=== PATIENT | female | born 1995 | race Caucasian/White ===

== ENCOUNTER 2023-10-23 10:52 | Outpatient (AMB) | payer OTHER, SELFPAY ==
--- NOTE | 2023-10-23 11:00 | A.OFFPC_ITS ---
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 Intake Note: New patient visit Allergies No Known Allergies Allergy (Verified 10/23/23 11:09) Medication List - Last Reconciled 10/23/23 by ADDIE FonsecaP- cetirizine (Zyrtec) 10 mg PO DAILY PRN Tobacco use date assessed: 10/23/23 Dental Screening Dental Screen Date: 10/23/23 Did you have a dental visit in the last 12 months?: Yes Did you have a dental problem in the last 6 months where you did not have access to dental care?: No Was dental information given to patient?: Patient has dentist HPI HPI Comments History of Present Illness Details 28-year-old female with obesity, seasona l allergies, MONSE, astigmatism Surgery - R foot surgery, no hardware 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 Colon ? Mammo ? DEXA ? PAP ? Tdap Specialists: Counseling Derm Here today to est care & for CPE. [place] Want DM screen & thyroid screen. Intentional wt loss w/ lifestyle mods. R wrist pain injured 1 year ago and has had recurrent injury since this time. 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 Has never had it looked at. Right handed. Wearing OTC compression brace w/ minimal relief. Plays disc golf ? exac. would like skin screen given family hx. Eyes - astigmatism needs new eye screen Sleep - no issues Plan: Refer to Metabolic Clinic Refer to FACSIMILE OPERATOR Refer to OT Tdap today Refer to Derm Refer to Counseling Refer to optho Screening labs. PFSH Family History (Updated 10/23/23 @ 11:21 by Janet June CMA) Maternal Grandmother Alcoholism Maternal Grandfather Alcoholism Cardiovascular disease Paternal Grandmother Alcoholism Paternal Grandfather Alcoholism Colon cancer Father Asthma Mother Hypercholesteremia Diabetes Other Substance use Social History (Updated 10/23/23 @ 11:16 by Janet June CMA) Housing: Apartment Patient Tobacco Use Status: Former Tobacco user Cigarettes Per Day: 2 Years Smoked: 3 e-Cigarette/Vaping Use: Never Used Second Hand Smoke Exposure: Yes Substance Use Type: Marijuana service: No Current occupational status: employed 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 1. Little interest or pleasure in doing things: not at all 2. Feeling down, depressed, or hopeless: not at all 3. Trouble falling or staying asleep, or sleeping too much: not at all 4. Feeling tired or having little energy: several days 5. Poor appetite or overeating: several days 6. Feeling bad about yourself - or that you are a failure or have let yourself or your family down: not at all 7. Trouble concentrating on things, such as reading the newspaper or watching television: not at all 8. Moving or speaking so slowly that other people could have noticed. Or the opposite - being so fidgety or restless that you have been moving around a lot more than usual: not at all 9. Thoughts that you would be better off or of hurting yourself in some way: not at all Total score: 2 Depression Screening Interpretation: Negative Depression Screening Done: Yes 34591 - PHQ-9 Billing: Yes Source: Developed by Drs. Shaji Doherty, Gabriella Perera, Panfilo Campos and colleagues, with an educational genevieve from [employer]. Thrive Questionnaire Date Thrive assessed: 10/23/23 I am a: Patient What is your living situation today?: I have a steady place to live Within the past 12 months, did the food you bought not last and you didn't have the money to get more?: Never true Within the past 12 months, did you worry whether your food would run out before you got money to buy more?: Never true Do you have trouble paying for medicines?: No Do you have trouble getting transportation to medical appointments?: No Do you have trouble paying your heating and electricity bill?: No Do you have trouble taking care of your child, family member or friend?: No Do you have trouble with day-to-day activities such as bathing, preparing meals, shopping, managing finances, etc.?: No Are you currently unemployed and looking for a job?: No Are you interested in more education?: No Please select the resources that you would like help with: None Currently or been in a relationship where the following occur: no concerns reported THRIVE Score: 0 AUDIT C Alcohol Use Questionnaire (AUDIT-C) 1. How often do you have a drink containing alcohol?: Monthly or less 2. How many drinks containing alcohol do you have on a typical day when you are drinking?: 3 or 4 3. How often do you have six or more drinks on one occasion?: Never Total Score: 2 Score Reviewed/Action Taken: Yes MONSE-7 AMB Questionnaire MONSE-7 Date MONSE - 7 assessed: 10/23/23 Feeling nervous, anxious, or on edge: 0 = Not at all Not being able to stop or control worryin = Not at all Worrying too much about different things: 1 = Several days Trouble relaxin = Not at all Being so restless that it is hard to sit still: 0 = Not at all Becoming easily annoyed or irritable: 1 = Several days Feeling afraid as if something awful might happen: 0 = Not at all Total MONSE-7 score (0-4 normal; 5-9 mild; 10-14 moderate; 15-21 severe): 2 Source: Developed by Drs. Shaji Doherty, Gabriella Perera, Panfilo Campos and colleagues, with an educational genevieve from [employer]. MONSE-7 Assessment Billing MONSE-7 Assessment Tool: MONSE-7 Assessment 84635 Review of Systems Const Details: Constitutional: Denies fever. Skin: Denies rash. Eye: Denies eye pain. ENMT: Denies sore throat and nasal congestion. Respiratory: Denies shortness of breath and cough. Gastrointestinal: Denies nausea, vomiting or abdominal pain. Occasional stools that float Cardiovascular: Denies chest pain and syncope. Genitourinary: Denies dysuria. Musculoskeletal: Denies back pain Neurologic: Denies headaches, confusion, and weakness. Psychiatric: Denies suicidal thoughts and substance abuse. Allergy/ Immunologic: Denies impaired immunity. Physical exam (Primary Care) Vital Signs: Last Vital Signs Temp 98.4 F 10/23/23 11:06 Pulse 70 10/23/23 11:06 Resp 14 10/23/23 11:06 BP 98/74 10/23/23 11:06 Pulse Ox 99 10/23/23 11:06 Oxygen Delivery Method Room Air 10/23/23 11:06 BMI result Body Mass Index 36.5 BMI Assessment/Plan discussion: High BMI High, discussed plan: lifestyle Tobacco/Smoking Status: Tobacco use Status Tobacco use date assessed 10/23/23 10/23/23 11:04 Patient Tobacco Use Status Former Tobacco user 10/23/23 11:16 e-Cigarette/Vaping Use Never Used 10/23/23 11:16 PHQ-9: PHQ-9 Score PHQ-9: Total score 2 10/23/23 12:16 Depression Screening Interpretation: Negative Thrive Assessment: Date of Thrive Assessment Date Thrive assessed 10/23/23 10/23/23 11:17 Currently or been in a relationship where the following occur: no concerns reported Const Other: General: Well developed, well nourished, in no acute distress. Appears stated age. Head: Normocephalic, atraumatic. Eyes: Pupils are equal, round and reactive to light and accommodation. Conjunctivae are clear. Vision grossly normal. Ears: TMs clear AU, EACS WNL Nose: Patent, without discharge. Mouth: There are no ulcers or lesions noted. No inflammation, no post nasal drip, no plaques nor exudates. Neck: Supple, no adenopathy or thyromegaly. Lungs: Clear to auscultation bilaterally. No rales, rhonchi or wheeze noted. Go od air flow in all lopez. Heart: Regular rate and rhythm. No murmurs, click, rubs or gallops are noted. Abdomen: Bowel sounds present in all quadrants. The abdomen is soft, nontender, with no masses or organomegaly noted. No hernias are noted. Musculoskeletal: Joints are without swelling, redness, or effusions. Range of motion is observed to be normal. Painful flexion of right wrist, pain with lateral movement bilat, twisting motion. Director Client Services normal. Pulses: Peripheral pulses are equal and palpable bilaterally. Extremities: No clubbing, cyanosis nor edema is noted. Neurologic: Gait and station normal. Cranial Nerves 2-12 intact. Motor strength grossly symmetrical and intact. No sensory loss. Balance normal. Skin: No rashes, ulcers, or lesions noted. Turgor is good. Skin color is good. Hair and nails are without abnormalities. Psych: Normal eye contact, affect and mood appropriate, and normal interactions. Patient is alert and appropriate to context. Assessment and Plan Assessment & Plan (1) Encounter for general adult medical examination without abnormal findings: Code(s): Z00.00 - Encounter for general adult medical examination without abnormal findings (2) Laboratory exam ordered as part of routine general medical examination: Code(s): Z00.00 - Encounter for general adult medical examination without abnormal findings (3) Class 2 drug-induced obesity with body mass index (BMI) of 36.0 to 36.9 in adult: Code(s): E66.1 - Drug-induced obesity; Z68.36 - Body mass index [BMI] 36.0-36.9, adult Qualifiers: Serious obesity comorbidity presence: without serious comorbidity Qualified Code(s): E66.1 - Drug-induced obesity; Z68.36 - Body mass index [BMI] 36.0-36.9, adult (4) MONSE (generalized anxiety disorder): Code(s): F41.1 - Generalized anxiety disorder (5) Cervical cancer screening: Code(s): Z12.4 - Encounter for screening for malignant neoplasm of cervix (6) Right wrist pain: Code(s): M25.531 - Pain in right wrist (7) 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 Panel Today Z00.00 - Encounter for general adult medical examination without abnormal findings Hemoglobin A1c Today Z00.00 - Encounter for general adult medical examination w ithout abnormal findings TSH reflex Free T4 Today Z00.00 - Encounter for general adult medical examination without abnormal findings Vitamin B12 and Folate Today Z00.00 - Encounter for general adult medical examination without abnormal findings LDL Cholesterol Direct Today Z00.00 - Encounter for general adult medical examination without abnormal findings Microalbumin, Random (w Creat) Today Z00.00 - Encounter for general adult medical examination without abnormal findings Vitamin D 1,25 dihydroxy Today Z00.00 - Encounter for general adult medical examination without abnormal findings IRON PROFILE Today Z00.00 - Encounter for general adult medical examination without abnormal findings Complete Blood Count no Diff Today Z00.00 - Encounter for general adult medical examination without abnormal findings Referrals Counseling Referral F41.1 - Generalized anxiety disorder Dermatology Referral Z12.83 - Encounter for screening for malignant neoplasm of skin Metabolic Clinic Referral E66.1 - Drug-induced obesity, Z68.36 - Body mass index [BMI] 36.0-36.9, adult FOOT GATHERER Referral Z12.4 - Encounter for screening for malignant neoplasm of cervix Ophthalmology Referral H52.209 - Unspecified astigmatism, unspecified eye Patient Instructions: Please return to office in 1 year for complete physical exam. Sooner as needed. Please let me know if you are unhappy with the metabolic clinic referral via the portal I would be happy to place a referral to nutrition. I will post your labs to the portal. If there is anything abnormal I will notify you via the portal. If any treatment is needed I will arrange for a follow up visit sooner than 1 year. Plan: Refer to Metabolic Clinic Refer to FACSIMILE OPERATOR Refer to OT Tdap today Refer to Derm Refer to Counseling Refer to optho Screening labs today Walk-In Care (Urgent Care): We Make it Easy Walk-in for urgent medical issues such as: ? Seasonal Allergies ? Insect Bites ? Cough ? Diarrhea ? Acute Asthma Attacks ? Back, Knee or Joint Pain ? Ear Infection ? Fever without a Rash ? Headaches ? Nausea ? [place] Eye, Rash or Skin Irritation ? Sore Throat ? Sports Physicals ? Vomiting Most insurances are accepted. Patients do not need to be part of the [facility] to seek care at the walk-in clinic. Locations [facility] [address]a [address], [place] [address] ? [phone] [facility] in [place] provides services to ages 18 and over. Open Sunday-Sunday: 8 a.m. to 5 p.m. and Saturday: 9 a.m. to 3 p.m.* *Hours may vary due to staffing availability. To confirm Walk-In Care hours in [place], please call [phone]. [address] [place] [address] ? [phone] [facility] Walk-In Care in [place] provides services to ages 12 and over. Open Sunday-Sunday: 8 a.m. to 5 p.m. Hours may vary due to staffing availability. To confirm Walk-In Care hours in [place], please call [phone]. LABORATORY SERVICES: [facility] Lab ? Primary Location [address] [place] [address] Sunday through Sunday 6:00 AM ? 5:00 PM Sunday 7:00 AM ? 11:00 AM* [phone] The [facility] Lab is centrally located near the front entrance of the [facility] for easy outpatient access. Convenient parking is provided for outpatients. *Hours may vary due to staffing availability. To confirm Laboratory hours for any location, please call [phone]. Offsite Location For your convenience, we offer offsite laboratory draw stations at the following locations: [address] [place] [address] ? [address], [address] Sunday through Sunday 7:30 AM ? 1:00 PM* [phone] *Hours may vary due to staffing availability. To confirm Laboratory hours for any location, please call [phone]. [place] ? [address] Sunday through Sunday 6:00 AM ? 3:30 PM* Sunday 6:30 AM ? 3 PM* [phone] *Hours may vary due to staffing availability. To confirm Laboratory hours for any location, please call [phone] [place] [address] Sunday through Sunday 7:30 AM ? 4:00 PM* [phone] *Hours may vary due to staffing availability. To confirm Laboratory hours for any location, please call [phone] [place] [address] Sunday through 9:00 AM ? 4:00 PM* *Hours may vary due to staffing availability. To confirm Laboratory hours for any location, please call [phone]. Appointments are not necessary. Walk-ins are welcome. Like all the departments throughout the [facility], our Lab undergoes frequent reviews to ensure the quality and accuracy of test results, and our staff takes special pride in its status as a nationally accredited facility. Patient Portal: ONE PATIENT. ONE RECORD. BETTER CARE. [facility] has a fully integrated, cutting- edge mobile electronic health information system that has revolutionized the way we care for our patients and manage our organization. This system improves communication and coordination enabling us to provide safe, higher-quality care, and an overall positive experience for staff and patients. Our first priority, as always, is to deliver the highest quality care possible. The system is running in the background supporting that priority. This portal is for all [facility] and [facility] services and practices. If you are experiencing any technical difficulties with enrolling or logging into the Patient Portal please complete the [facility] Patient Portal Technical Support Form. [facility] now offers a new secure on-line interactive tool for patients to review their health information ? ?Patient Portal. This interactive web portal will enable patients and their families to take an active role in their care by providing easy, secure access to their health information via the internet. The Patient Portal provides patients with instant access to their health information, including laboratory results, medications, allergies, demographic information, visit history, and more. In addition to managing their own care, parents and health care proxies with authorized consent will appreciate the ability to access the records of those individuals for whom they provide care. Please note: if you wish to gain access (Proxy) to another patient?s portal, you will be required to come to the Medical Records Department in person at [facility]. Both the patient giving proxy access and the proxy will need to provide photo identification and complete the appropriate authorization. The Patient Portal also allows track their appointments online. The [facility] Patient Portal also saves patients time by allowing them to submit updates to their demographic and contact information prior to their visits. Portal email notifications will also alert patients to any new activity on their portal, such as test results and new appointments. In order to initially enroll in the [facility] Patient Portal, you will need to enter some required information including the following: * your [facility] Medical Record number * your personal home email address * name * date of Please note: In order to enroll in the [facility] Patient Portal, we need to have your email address on file in your electronic medical record. ?The email address needs to be specific for one person (yourself) in order for your Portal enrollment to be successful. ?You can update your email address in person with our Registration staff when you are registering for a hospital visit. ?Otherwise, you will need to come to the Health Information Management (Medical Records) Department at [facility]. ?We are open from Sunday ? Sunday from 7:30 a.m. ? 4:30 p.m. ?You will be required to present a photo id. Once you have successfully enrolled in the Patient Portal, you will receive a one-time user id and password for the Portal, sent to your email address. ?This will allow you to log into the Patient Portal within 99 hrs and reset your own logon id and password, and define personal security questions. ?Once your per manent login and password have been set, you can log into the [facility] Patient Portal at any time via the blue button above or from the Portal Logon button on any page of the [facility] website. [facility] and [facility] encourage all of our patients to enroll in Patient Portal as it presents a valuable opportunity for patients and their families to actively participate in their care and stay healthy Welcome to [facility]. ?We look forward to working with you. Health screenings for women You should visit your health care provider from time to time, even if you are healthy. The purpose of these visits is to: Screen for medical issues Assess your risk for future medical problems Encourage a healthy lifestyle Update vaccinations and other preventive care services Help you get to know your provider in case of an illness Information Even if you feel fine, you should still see your provider for regular checkups. These visits can help you avoid problems in the future. For example, the only way to find out if you have high blood pressure is to have it checked regularly. High blood sugar and high cholesterol levels also may not have any symptoms in the early stages. A simple blood test can check for these conditions. There are specific times when you should see your provider or receive specific health screenings. The [place] Preventive Services Task Force publishes a list of recommended screenings. Below are screening guidelines for women ages 18 to 39. BLOOD PRESSURE SCREENING Your blood pressure should be checked at least once every 3 to 5 years if: Your blood pressure is in the normal range (top number less than 120 mm Hg and bottom number less than 80 mm Hg) You don't have risk factors for high blood pressure Ask your provider if you need your blood pressure checked more often if: The top number is 120 to 129 mm Hg or the bottom number is 70 to 79 mm Hg You have diabetes, heart disease, kidney problems, are overweight, or have certain other health conditions You have a first-degree relative with high blood pressure You are Black You had high blood pressure during a If the top number is 130 mm Hg or greater or the bottom number is 80 mm Hg or greater, this is considered stage 1 hypertension. Schedule an appointment with your provider to learn how you can reduce your blood pressure. Watch for blood pressure screenings in your area. Ask your provider if you can stop in to have your blood pressure checked. BREAST CANCER SCREENING Experts do not agree about the benefits of breast self-exams in finding breast cancer or saving lives. Talk to your provider about what is best for you. A screening mammogram is not recommended for most women under age 40. Your provider may discuss and recommend mammograms, MRI scans, or ultrasounds if you have an increased risk for breast cancer, such as: A mother or sister who had breast cancer at a young age (most often starting screening earlier than the age the close relative was diagnosed) You carry a high-risk genetic marker CERVICAL CANCER SCREENING Cervical cancer screening should start at age 21 years unless your provider advises otherwise. After the first test: Women ages 21 through 29 should have a Pap test every 3 years. Exoprts do not agree on whether HPV testing is recommended for this age group. Women ages 30 through 65 should be screened with either a Pap test every 3 years or the HPV test every 5 years or both tests every 5 years (called cotesting ). Women who have been treated for precancer (cervical dysplasia) should continue to have Pap tests for 20 years after treatment or until age 65, whichever is longer. If you have had your uterus and cervix removed (total hysterectomy), and you have not been diagnosed with cervical cancer or precancer (high grade cervical neoplasia), you do not need cervical cancer screening. CHOLESTEROL SCREENING Cholesterol screening should begin at: Age 45 for women with no known risk factors for coronary heart disease Age 20 for women with known risk factors for coronary heart disease Repeat cholesterol screening should take place: Every 5 years for women with normal cholesterol levels More often if changes occur in lifestyle (including weight gain and diet) More often if you have diabetes, heart disease, kidney problems, or certain other conditions DIABETES SCREENING You should be screened for diabetes starting at age 35 and then repeated every 3 years if you have no risk factors for diabetes. Screening may need to start earlier and be repeated more often if you have other risk factors for diabetes, such as: You have a first degree relative with diabetes. You are overweight or have obesity. You have high blood pressure, prediabetes, or a history of heart disease. Screening for diabetes should be done if you are planning to become and you are overweight and have other risk factors such as high blood pressure. DENTAL EXAM Go to the dentist once or twice every year for an exam and cleaning. Your dentist will evaluate if you need more frequent visits. EYE EXAM Have an eye exam every 5 to 10 years before age 40. If you have vision problems, have an eye exam every 2 years or more often if recommended by your provider. You should have an eye exam that includes an examination of your retina (back of your eye) at least every year if you have diabetes. IMMUNIZATIONS Commonly needed vaccines include: Flu shot: get one every year. COVID-19 vaccine: ask your provider what is best for you. Tetanus-diphtheria and acellular pertussis (Tdap) vaccine: have one at or after age 19 as one of your tetanus-diphtheria vaccines if you did not receive it as an adolescent. Tetanus-diphtheria: have a booster (or Tdap) every 10 years. Varicella vaccine: receive 2 doses if you never had chickenpox or the varicella vaccine. Hepatitis B vaccine: receive 2, 3, or 4 doses, depending on your exact circumstances. Measles, mumps, and rubella (MMR) vaccine: receive 1 to 2 doses if you are not already immune to MMR. Your provider can tell you if you are immune. Ask your provider about the human papillomavirus (HPV) vaccine if: You have not received the HPV vaccine in the past You have not completed the full vaccine series (you should catch up on this shot) Ask your provider if you should receive other immunizations if you have certain health problems that increase your risk for some diseases such as pneumonia. INFECTIOUS DISEASE SCREENING Women who are sexually active should be screened for chlamydia and gonorrhea up until age 25. Women 25 years and older should be screened for chlamydia and gonorrhea if at high risk. Screening for hepatitis C: All adults ages 18 to 79 should get a one-time test for hepatitis C. people should be screened at every . Screening for human immunodeficiency virus (HIV): All people ages 15 to 65 should get a one-time test for HIV. Depending on your lifestyle and medical history, you may also need to be screened for infections such as syphilis and HIV, as well as other infections. PHYSICAL EXAM All adults should visit their provider from time to time, even if they are healthy. The purpose of these visits is to: Screen for disease Assess your risk of future medical problems Encourage a healthy lifestyle Update your vaccinations and other preventive care services Maintain a relationship with a provider in case of an illness Your height, weight, and BMI should be checked at every exam. During your exam, your provider may ask you about: Depression and anxiety Diet and exercise Alcohol and tobacco use Safety issues, such as using seat belts, smoke detectors, and intimate partner violence Your medicines and risk for interactions SKIN SELF-EXAM Your provider may check your skin for signs of skin cancer, especially if you're at high risk, such as if you: Have had skin cancer before Have close relatives with skin cancer Have a weakened immune system OTHER SCREENING Talk with your provider about colon cancer screening if you have a strong family history of colon cancer or polyps, or if you have had inflammatory bowel disease or polyps yourself. Routine bone density screening of women under 40 is not recommended. 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
[2023-10-23 11:06] VITALS: BP 98/74; PULSE 70; RESP 14; TEMP 36.9; O2SAT 99; BMI 36.5
== END 2023-10-23 11:46 | disposition home or self-care (01) ==
PROVIDERS: PCP Family Medicine; Visit Provider Nurse Practitioner Family
DX: Z00.00 Encounter for general adult medical examination without abnormal findings (principal); E66.1 Drug-induced obesity; Z68.36 Body mass index [BMI] 36.0-36.9, adult; Z23 Encounter for immunization; F41.1 Generalized anxiety disorder; M25.531 Pain in right wrist; R29.898 Other symptoms and signs involving the musculoskeletal system; H52.203 Unspecified astigmatism, bilateral
CPT/HCPCS: 90471; 90715; 99385

== ENCOUNTER 2023-10-23 11:51 | Outpatient (REF) | payer OTHER, SELFPAY ==
[2023-10-23 14:37] LABS: Hematocrit 38.3 % (37.0-47.0); Hemoglobin 12.5 g/dl (12.0-16.0); Mean Corpuscular HGB Conc 32.6 g/dl (31.0-35.0); Mean Corpuscular Hemoglobin 29.3 pg (27.0-33.0); Mean Corpuscular Volume 89.9 fL (80.0-98.0); Mean Platelet Volume 10.6 fL (9.4-12.3); Platelet Count 344 X10*3/uL (160-400); Red Blood Count 4.26 X10*6/uL (4.20-5.50); Red Cell Distribution Width 12.6 % (11.0-16.0); White Blood Count 7.2 X10*3/uL (4.8-10.8)
[2023-10-23 14:48] LABS: Estimated Average Glucose 94 mg/dL; Hemoglobin A1c % 4.9 % (<6.0)
[2023-10-23 14:53] LABS: Alanine Aminotransferase 66 U/L (0-31); Albumin Level 4.1 g/dL (3.5-5.0); Alkaline Phosphatase 47 U/L (39-117); Anion Gap 11 (12-20); Aspartate Amino Transferase 46 U/L (5-31); Bilirubin Total 0.4 mg/dL (0.0-1.0); Blood Urea Nitrogen 11 mg/dL (9-16); Calcium 9.7 mg/dL (8.4-10.2); Carbon Dioxide 26 mmol/L (22-29); Chloride 107 mmol/L (96-108); Estimated Glomerular Filt Rate > 60; Glucose Random 91 mg/dL (60-115); Iron 63 mcg/dL (30-160); Percent Iron Saturation 22 % (15-50); Sodium 140 mmol/L (135-145); Total Iron Binding Capacity 281 mcg/dL (228-428); Total Protein 7.1 g/dL (6.5-8.0); Unsaturated Iron Binding 218 ug/dL
[2023-10-23 15:09] LABS: TSH reflex Free T4 2.04 uIU/mL (0.32-4.0)
[2023-10-23 15:10] LABS: Creatinine Urine 39.28 mg/dL; Microalbumin Urine < 5.0 mg/L
[2023-10-23 15:23] LABS: Folate 12.5 ng/mL (> or = 4.0); Vitamin B12 314 pg/mL (200-900)
[2023-10-24 17:13] LABS: LDL Cholesterol Direct 112 mg/dL (<100)
[2023-10-27 13:38] LABS: VITAMIN D (1,25 OH) D3 27 pg/mL; Vit D (1,25-Dihydroxy) Total 27 pg/mL (18-72); Vitamin D (1,25 OH) D2 <8 pg/mL
== END 2023-10-23 11:52 | disposition home or self-care (01) ==
LOC: HO.WFDLDS 11:51
PROVIDERS: Visit Provider Nurse Practitioner Family
DX: Z00.00 Encounter for general adult medical examination without abnormal findings (principal); Z13.89 Encounter for screening for other disorder; Z13.1 Encounter for screening for diabetes mellitus
CPT/HCPCS: 36415; 80053; 82043; 82570; 82607; 82652; 82746; 83036; 83540; 83721; 84443; 85027

== ENCOUNTER 2023-10-31 09:10 | Outpatient (AMB) | payer OTHER, SELFPAY ==
--- NOTE | 2023-10-31 09:21 | A.OFFVIS_ITS ---
VS Expanded 10/31/23 09:21 10/31/23 09:28 Height 5 ft 5.5 in 5 ft 5.5 in Weight 220 lb 14.451 oz BMI 36.2 Intake Visit Reasons: Drug-induced obesity Allergies No Known Allergies Allergy (Verified 10/23/23 11:09) Nutrition Presentation Details: Pt presents for MNT for drug-induced obesity. Pt was referred by PCP, Sera Turner BS Monitoring Most Recent Diabetes Results: Microalb/Creat Ratio TNP 10/23/23 Creatinine 0.75 mg/dL (0.5-1.4) 10/23/23 Blood Urea Nitrogen 11 mg/dL (9-16) 10/23/23 Sodium 140 mmol/L (135-145) 10/23/23 Potassium 4.0 mmol/L (3.3-5.1) 10/23/23 Chloride 107 mmol/L (96-108) 10/23/23 Carbon Dioxide 26 mmol/L (22-29) 10/23/23 Calcium 9.7 mg/dL (8.4-10.2) 10/23/23 AST 46 U/L (5-31) H 10/23/23 ALT 66 U/L (0-31) H 10/23/23 Total Protein 7.1 g/dL (6.5-8.0) 10/23/23 Albumin 4.1 g/dL (3.5-5.0) 10/23/23 FIQ-Qeomzfs-Zh.Jeor Equation Height: 5 ft 5.5 in Weight: 221 lb Resting Metabolic Rate: 1732.65 Calculated Activity Level: Sedentary Calories Needed to Maintain Weight: 2079.18 Diagnosis Nutrition problem #1: food nutri know defi As related to (etiology) #1: diagnosis As evidenced by (sign/symptom) #1: knowledge deficit of diet Monitoring/Goals Nutrition problem monitoring: level of knowledge/skill Nutrition goal/outcome: wt loss 5lbs in 2 months Outcome progress: verbalized understanding Learning/Education Readiness to learn: good PFSH Family History (Updated 10/23/23 @ 11:21 by Janet June [facility]) Maternal Grandmother Alcoholism Maternal Grandfather Alcoholism Cardiovascular disease Paternal Grandmother Alcoholism Paternal Grandfather Alcoholism Colon cancer Father Asthma Mother Hypercholesteremia Diabetes Other Substance use Social History (Updated 10/23/23 @ 11:16 by CONCEPCION Joe Housing: Apartment Patient Tobacco Use Status: Former Tobacco user Cigarettes Per Day: 2 Years Smoked: 3 e-Cigarette/Vaping Use: Never Used Second Hand Smoke Exposure: Yes Substance Use Type: Marijuana service: No Current occupational status: employed 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 Current occupational exposures/hazards: No Cognitive needs: No Hearing needs: No Vision needs: No Assessment & Plan Assessment & Plan (1) Class 2 drug-induced obesity with body mass index (BMI) of 36.0 to 36.9 in adult: Code(s): E66.1 - Drug-induced obesity; Z68.36 - Body mass index [BMI] 36.0-36.9, adult Category: Medical Qualifiers: Serious obesity comorbidity presence: without serious comorbidity Qualified Code(s): E66.1 - Drug-induced obesity; Z68.36 - Body mass index [BMI] 36.0-36.9, adult Plan: Wt: 100 Kg ( 11/2023 ) Est kcal needs as per MSJ: 2100 (40% carb, 30% protein/fat) Est fluid needs as per 25-30 ml/d: 3000 Est prot per day as per 1 g/kg bw: 100 Recommend fiber intake : 8-10 g per day and gradually increase to 25-28 g per day for women and 35-38 g for men or as tolerated Recommend sodium intake per day : less than 2000 mg Educated patient on: ( R = reviewed V = verbalizes understanding N/R = needs review N/A = not applicable * Food sources of carbohydrate, adequate serving sizes and its role in various health conditions: R * Differences between complex carbohydrates a simple carbohydrates, role of fiber in diet: R * Lean protein sources of foods: R * Differences between types of fats and role in diet (mono on saturated fat fatty acids, saturated fatty acids, trans fats): R V N/R * Food sources of sodium in salt and healthy modifications for heart health in kidney health: R V R/V * Vitamins and minerals: R V N/R * Healthy plate method concept: R * Physical activity: Benefits a precaution: R V N/R * Mindful eating strategies: R Patient Instructions: work on meal planning following healthy plate method Reduce your total carbs to about 60-g or less per meal choosing complex carbs, practice mindful eating strategies Coding Level of Care Code Nutr Indiv Intake (71133) Diagnoses 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
[2023-11-06 08:40] VITALS: BMI 36.2
== END 2023-10-31 10:01 | disposition home or self-care (01) ==
PROVIDERS: PCP Family Medicine; Visit Provider Dietitian, Registered
DX: E66.1 Drug-induced obesity (principal); Z68.36 Body mass index [BMI] 36.0-36.9, adult

== ENCOUNTER → 2023-10-31 09:10 | Outpatient (BNVA) | payer OTHER, SELFPAY | PROVIDERS: PCP Family Medicine; Visit Provider Dietitian, Registered | DX: E66.1 Drug-induced obesity (principal); T50.905A Adverse effect of unspecified drugs, medicaments and biological substances, initial encounter; Z68.36 Body mass index [BMI] 36.0-36.9, adult; Z71.3 Dietary counseling and surveillance | CPT/HCPCS: 97802 ==

== ENCOUNTER 2024-01-18 13:00 | Outpatient (RCR) | payer OTHER, SELFPAY ==
--- NOTE | 2023-11-28 14:02 | MHC.OT.EP ---
[address] [phone] Occupational Therapy Plan of Care Patient Name: Carolann Rodriguez Date of Evaluation: 11/28/23 Diagnosis: R FA radial wrist pain Pain Location: volar radial side of FA Pain Score: 4 Pain Scale Used: Numeric (0 - 10) Aggravating Factors: wrist flexion and wrist abduction ; heavy lifting and gripping Alleviating Factors: rest Assessment: Pt is a 28 yr. old R hand dominant female who has been experiencing R radial wrist/ forearm pain for a few mos. She believes she may have over extended a few mos. ago while performing yoga. She reports the pain is w/ heavy lifting (over 5lbs), after disc golf and/or w/wrist flexion and abduction. 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 Thank you once again for your referral.
== END 2024-01-18 14:20 | disposition home or self-care (01) ==
LOC: HO.OT 13:00
PROVIDERS: PCP Nurse Practitioner Family; Visit Provider Nurse Practitioner Family
DX: M25.531 Pain in right wrist (principal); R29.898 Other symptoms and signs involving the musculoskeletal system
CPT/HCPCS: 97110; 97140; 97165; 97535

== ENCOUNTER 2024-01-18 14:27 | Outpatient (AMB) | payer OTHER, SELFPAY ==
[2024-01-18 14:35] VITALS: BP 100/60; BMI 36.9
--- NOTE | 2024-01-18 14:35 | A.OFFVIS_ITS ---
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 she is well to into her own body. In the past she has used an IUD she did think that she had an allergic reaction to the metal though in questioning there is also possibility that iodine splash Betadine could be a factor as well. She lived in [place] for several years and then in [place] and now has relocated to the [facility] she has a therapist at [facility]. She does lots of various kinds of exercises that are very active and she is adding weight training to her regimen. She recently saw her primary care provider and has gotten a bunch referrals. She was interested in testing for BV but also had a full discussion about it today she is not having particular symptoms today the thought she was aware of slight odor. She is going to lean towards treating were naturally with probiotics if necessary or boric acid but was happy to have a prescription sent for Metrogel just in case she needs it. She is currently in the follicular phase of her cycle. She also had question about small bumps that she has in her vulva that she has noticed over the years she thinks it started as a small folliculitis so painful that she squeezed and it got bigger PFSH Family History Maternal Grandmother Alcoholism Maternal Grandfather Alcoholism Cardiovascular disease Paternal Grandmother Alcoholism Paternal Grandfather Alcoholism Colon cancer Father Asthma Mother Hypercholesteremia Diabetes Other Substance use Social History Housing: Apartment Patient Tobacco Use Status: Former Tobacco user Cigarettes Per Day: 2 Years Smoked: 3 e-Cigarette/Vaping Use: Never Used Second Hand Smoke Exposure: Yes Substance Use Type: Marijuana service: No Current occupational status: employed 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 Current occupational exposures/hazards: No Cognitive needs: No Hearing needs: No Vision needs: No Female Reproductive History Menstrual Age of Menarche: 11 Duration of menses: 6-7 days Date of last menstrual period: 01/05/24 control method: none Total pregnancies: 0 Date of last pap smear: 06/05/18 (negative) History of abnormal pap smear: No Physical Exam Vital Signs: Last Vital Signs BP 100/60 01/18/24 14:35 BMI result Body Mass Index 36.9 Const General: healthy appearing, comfortable, no acute distress, well developed and alert Nutritional Appearance: average body habitus Orientation/consciousness: patient oriented x3 Limitations: no limitations HEENT Head: Yes normocephalic Neck Neck: Yes normal visual inspection Chest Chest palpation & inspection: normal inspection of the chest Breast/axilla inspection: normal inspection of the breasts and normal inspection of the axillae Breast/axilla palpation: normal palpation of the breasts and normal palpation of the axillae Resp Effort & Inspection: normal respiratory effort GI Inspection: Yes normal to inspection, No Abdominal wall edema and No distended Palpation (GI): Soft to palpation and nontender Other: External vagina within normal limits vulva is slightly pinker than surrounding tissue. Vagina pink and moist clear discharge consistent with a approaching ovulation cervix appears irregular as if it is multiparous but patient has not however had a she did have the IUD and she posits that perhaps it got scarred with removal of the IUD. Cervix is otherwise long close thick mobile nontender uterus is small retroverted mobile nontender adnexa nontender not enlarged good tone with Kegel There is 1 some mucosal whitish firm lesion (0.5 cm in length 0.25 cm wide) right labia as well as to tinier that appeared to be the same in character. General: Yes bladder normal to palpation External Female Exam: normal external appearance and normal appearance of the urethra Speculum Exam - Vagina: normal appearance of the vagina, normal palpation and normal vaginal discharge Speculum Exam - Cervix: normal appearance of the cervix, normal palpation and nontender Bimanual exam- vagina & uterus: normal bimanual exam, normal palpation, uterine size normal, bladder normal to palpation, consistency normal, normal palpation, uterine mobility normal, uterine shape normal, No Cervical tenderness present, non-tender and no cervical motion tenderness Bimanual Exam- Adnexa, other: normal adnexae, no masses, normal and No adnexal tenderness Neuro General: patient oriented x3 Assessment & Plan Assessment & Plan (1) Cervical cancer screening: Comment: 01/18/2024 Pap smear done. Code(s): Z12.4 - Encounter for screening for malignant neoplasm of cervix Category: Medical (2) Bacterial vaginosis: Comment: History of some recurrences, extensive discussion about this entity and over diagnosis and contributing factors, no clinical evidence of it today. 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 she is well to into her own royce dy. In the past she has used an IUD she did think that she had an allergic reaction to the metal though in questioning there is also possibility that iodine splash Betadine could be a factor as well. She lived in [place] for several years and then in [place] and now has relocated to the [place] states she has a therapist at [facility]. She does lots of various kinds of exercises that are very active and she is adding weight training to her regimen. She recently saw her primary care provider and has gotten a bunch referrals. She was interested in testing for BV but also had a full discussion about it today she is not having particular symptoms today the thought she was aware of slight odor. She is going to lean towards treating were naturally with probiotics if necessary or boric acid but was happy to have a prescription sent for Metrogel just in case she needs it. She is currently in the follicular phase of her cycle. -----Discussed in this visit the following: healthy balanced diet, regular and consistent exercise, getting recommended health screens, doing the best she can for her particular health concerns, kegel exercises, pap smear screening and followup recommendations, mammography screening and SBE, normal changes in cycles in her life stage--- . She is not interested in get at this time. She is thinking that maybe she and her partner may consider that next 5-7 years discussed fertility changes over time and her excellent self awareness. Reviewed that we do not have a birthing center here so full comprehensive obstetrical care is not avai lable in our facility any longer. Medications: New metronidazole 0.75%(37.5mg/5gram) Use p.r.n. When necessary for bacterial vaginosis 1 appful vaginal BID 5 days 70 grams 2RF Coding Level of Care Code New Pt Prev Care 18-39yr([id number] Diagnoses Cervical cancer screening Z12.4 Bacterial vaginosis N76.0; B96.89 Uses fertility awareness method as primary control method Z78.9
== END 2024-01-18 15:34 | disposition home or self-care (01) ==
PROVIDERS: PCP Nurse Practitioner Family; Visit Provider Advanced Practice Midwife
DX: Z01.419 Encounter for gynecological examination (general) (routine) without abnormal findings (principal); N76.0 Acute vaginitis; B96.89 Other specified bacterial agents as the cause of diseases classified elsewhere; Z78.9 Other specified health status
CPT/HCPCS: 99385

== ENCOUNTER 2024-01-18 14:27 | Outpatient (REF) | payer OTHER, SELFPAY ==
[2024-01-22 05:01] LABS: CT PCR NOT DETECTED (Not Detect.); NG PCR NOT DETECTED (Not Detect.)
[2024-01-22 11:13] LABS: Bacterial Vaginosis PCR POSITIVE (Negative); Candida Group PCR DETECTED (Not Detect); Candida glab krusei PCR NOT DETECTED (Not Detect); Trichomonas vaginalis PCR NOT DETECTED (Not Detect)
[2024-01-24 13:04] LABS: HPV mRNA E6/E7 Not Detected (Not Detected)
== END 2024-01-18 14:28 | disposition home or self-care (01) ==
LOC: HO.LAB 14:27
PROVIDERS: PCP Nurse Practitioner Family; Visit Provider Advanced Practice Midwife
DX: Z01.419 Encounter for gynecological examination (general) (routine) without abnormal findings (principal); N89.8 Other specified noninflammatory disorders of vagina; Z20.2 Contact with and (suspected) exposure to infections with a predominantly sexual mode of transmission
CPT/HCPCS: 0352U; 36415; 87491; 87591; 87624; 88175

== ENCOUNTER → 2024-03-07 11:46 | Outpatient (AMB) | payer OTHER, SELFPAY ==
--- NOTE | 2024-03-07 15:52 | MHC.PC.OV ---
Intake Visit Reasons: fu on asthma Allergies No Known Allergies Allergy (Verified 03/07/24 15:52) Medication List - Last Reconciled 03/07/24 by Saba Turner, [facility] albuterol sulfate 90 mcg/actuation 2 puffs inhalation Q4-6H PRN 30 days cetirizine (Zyrtec) 10 mg PO DAILY PRN fluconazole 150 mg PO DAILY 1 dose metronidazole 0.75%(37.5mg/5gram) 1 appful vaginal BID 5 days multivitamin 1 tab PO DAILY Tobacco use date assessed: 10/23/23 Dental Screening Dental Screen Date: 10/23/23 HPI HPI Comments History of Present Illness Details 29-year-old female with obesity, seasonal allergies, MONSE, astigmatism Surgery - R foot surgery, no hardware 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 However over the summer she has noticed an increase in the intensity of her allergy symptoms to the point where she is having wheezing chest tightness and shortness of breath. She reports that these symptoms are worse with exposures to allergens such as dogs and dust. She was on daily Zyrtec 10 mg. Admits to taking up to 50 mg daily to control symptoms without relief. Her father has an albuterol inhaler and she did use this during 1 of her episodes with positive relief. She did send me a portal message and I also sent in an albuterol inhaler of which she has used 2 times since then. She wonders if there is any allergy testing or treatment that she can have done. She denies any cough, tobacco use her smoke exposure. She denies a personal history of asthma. She has not been able to check her O2 saturations at baseline or when these occurrences are happening. She has tried Benadryl to help relieve her symptoms as well as Claritin. Plan Discontinue Zyrtec. Start Xyzal 5 mg 1 tab p.o. daily. Try this for 1 week to see if this helps the allergy symptoms. If not start Singulair 10 mg 1 tablet p.o. at bedtime in addition to Xyzal. Referral to Allergy and immunology in [facility] for further evaluation and treatment. Continue to use albuterol as needed. The goal would be to have well-controlled symptoms and not need this other than prophylactically. Educated that if she develops respiratory distress she should seek care in the emergency room. Advised for her to follow up with me should her symptoms not be improved. This note is constructed using voice recognition software. While every effort has been made to ensure accuracy in professional services specialist, still errors may have been included Sometimes, these errors may affect the content or meaning of the given sentence . Total time spent caring for the patient today was 15 minutes. This includes time spent before the visit reviewing the chart, time spent during the visit, and time spent after the visit on documentation PFSH Family History Maternal Grandmother Alcoholism Maternal Grandfather Alcoholism Cardiovascular disease Paternal Grandmother Alcoholism Paternal Grandfather Alcoholism Colon cancer Father Asthma Mother Hypercholesteremia Diabetes Other Substance use Social History Housing: Apartment Patient Tobacco Use Status: Former Tobacco user Cigarettes Per Day: 2 Years Smoked: 3 e-Cigarette/Vaping Use: Never Used Second Hand Smoke Exposure: Yes Substance Use Type: Marijuana service: No Current occupational status: employed 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 Shaji Doherty, Gabriella Perera, Panfilo Campos and colleagues, with an educational genevieve from [employer]. Physical exam (Primary Care) Tobacco/Smoking Status: Tobacco use Status Tobacco use date assessed 10/23/23 10/23/23 11:04 Patient Tobacco Use Status Former Tobacco user 10/23/23 11:16 e-Cigarette/Vaping Use Never Used 10/23/23 11:16 Thrive Assessment: Date of Thrive Assessment Date Thrive assessed 10/23/23 10/23/23 11:17 Telehealth Telehealth Telehealth Platform: [facility] Location of provider rendering services: practice address Location of patient: address on file Patient Identification confirmed using: Name, : Yes Telehealth method: voice only Patient verbally consented to treatment: Yes Patient verbally consented to billing insurance company: Yes Patient informed of any privacy concerns related to visit: Yes Minutes spent on Phone/Video with Pt.: 10 Coding Level of Care Code Tele Est Pt Level 2 (53226) Complex EM visit Add On G2211 Diagnoses Seasonal allergies J30.2 Mild intermittent extrinsic asthma without complication J45.20 Asthma severity: mild Asthma persistence: intermittent Asthma complication type: uncomplicated Assessment & Plan Assessment & Plan (1) Seasonal allergies: Code(s): J30.2 - Other seasonal allergic rhinitis Category: Medical Plan: . (2) Allergic asthma: Code(s): J45.909 - Unspecified asthma, uncomplicated Category: Medical Qualifiers: Asthma severity: mild Asthma persistence: intermittent Asthma complication type: uncomplicated Qualified Code(s): J45.20 - Mild intermittent asthma, uncomplicated Plan: . Plan . Orders: Referrals Allergy & Immunology Referral J30.2 - Other seasonal allergic rhinitis, J45.909 - Unspecified asthma, uncomplicated Medications: New levocetirizine (Xyzal) 5 mg PO DAILY 90 tabs 2RF montelukast (Singulair) 10 mg PO BEDTIME 90 tabs 0RF
== END ==
LOC: HO.HMCFM 11:46
PROVIDERS: PCP Nurse Practitioner Family; Visit Provider Nurse Practitioner Family
DX: J30.2 Other seasonal allergic rhinitis (principal); J45.20 Mild intermittent asthma, uncomplicated

== ENCOUNTER → 2024-03-07 11:46 | Outpatient (BNVA) | payer OTHER, SELFPAY | PROVIDERS: PCP Nurse Practitioner Family; Visit Provider Nurse Practitioner Family ==

== ENCOUNTER 2025-04-23 09:13 | Outpatient (AMB) | payer OTHER, SELFPAY ==
--- NOTE | 2025-04-23 09:31 | A.OFFVIS_ITS ---
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: Diver Helper Present (Yuliya) Accompanied by: Self / Same As Patient Allergies No Known Allergies Allergy (Verified 04/23/25 09:38) Medication List - Last Reconciled 04/23/25 by Ana Aguirre CNM albuterol sulfate 90 mcg/actuation 2 puffs inhalation Q4-6H PRN 30 days levocetirizine (Xyzal) 5 mg PO DAILY multivitamin 1 tab PO DAILY Is last menstrual period known: Yes Last menstrual period: 04/05/25 Post menopausal: No Patient : No PFSH Family History Maternal Grandmother Alcoholism Maternal Grandfather Alcoholism Cardiovascular disease Paternal Grandmother Alcoholism Paternal Grandfather Alcoholism Colon cancer Father Asthma Mother Hypercholesteremia Diabetes Other Substance use Social History Housing: Apartment Patient Tobacco Use Status: Former Tobacco user Cigarettes Per Day: 2 Years Smoked: 3 e-Cigarette/Vaping Use: Never Used Second Hand Smoke Exposure: Yes Substance Use Type: Marijuana service: No Current occupational status: employed 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 Current occupational exposures/hazards: No Cognitive needs: No Hearing needs: No Vision needs: No Female Reproductive History Menstrual Age of Menarche: 11 Duration of menses: 6-7 days Date of last menstrual period: 04/05/25 control method: none Total pregnancies: 0 Date of last pap smear: 01/18/24 History of abnormal pap smear: No Physical Exam Vital Signs: Last Vital Signs BP 108/78 04/23/25 09:40 BMI result Body Mass Index 36.7 Const General: healthy appearing, comfortable, no acute distress, well developed and alert Nutritional Appearance: average body habitus Orientation/consciousness: patient oriented x3 Limitations: no limitations HEENT Head: Yes normocephalic Neck Neck: Yes normal visual inspection Chest Chest palpation & inspection: normal inspection of the chest Breast/axilla inspection: normal inspection of the breasts and normal inspection of the axillae Breast/axilla palpation: normal palpation of the breasts and normal palpation of the axillae Resp Effort & Inspection: normal respiratory effort GI Inspection: Yes normal to inspection, No Abdominal wall edema and No distended Palpation (GI): Soft to palpation and nontender Other: Patient gets long cycles 30-35 days and believes she has probably going to ovulate in the next couple of days. External exam within normal limits vagina pink and moist nulliparous cervix pink smooth healthy appearing with scant clear mucus approaching fertile mucus. Cervix long close thick mobile nontender uterus midposition to anteverted mobile nontender adnexa nontender good tone with Kegel General: Yes bladder normal to palpation External Female Exam: normal external appearance and normal appearance of the urethra Speculum Exam - Vagina: normal appearance of the vagina, normal palpation and normal vaginal discharge Speculum Exam - Cervix: normal appearance of the cervix, normal palpation and nontender Bimanual exam- vagina & uterus: normal bimanual exam, normal palpation, uterine size normal, bladder normal to palpation, consistency normal, normal palpation, uterine mobility normal, uterine shape normal, No Cervical tenderness present, non-tender and no cervical motion tenderness Bimanual Exam- Adnexa, other: normal adnexae, no masses, normal and No adnexal tenderness Neuro General: patient oriented x3 Assessment & Plan Assessment & Plan (1) Cervical cancer screening: Comment: 01/18/2024 Pap smear = negative with negative HPV. Code(s): Z12.4 - Encounter for screening for malignant neoplasm of cervix Category: Medical (2) Bacterial vaginosis: Comment: History of some recurrences, extensive discussion about this entity and over diagnosis and contributing factors, no clinical evidence of it today. script for Metrogel sent so patient may have to use at her convenience without having to call for it, Code(s): N76.0 - Acute vaginitis; B96.89 - Other specified bacterial agents as the cause of diseases classified elsewhere Category: Medical (3) Uses fertility awareness method as primary control method: Code(s): Z78.9 - Other specified health status Category: Social Hx Plan -----Discussed in this visit the following: healthy balanced diet, regular and consistent exercise, getting recommended health screens, doing the best she can for her particular health concerns, kegel exercises, pap smear screening and followup recommendations, mammography screening and SBE, normal changes in cycles in her life stage--- .----I reviewed available options for Control Methods and their associated side effect profiles. In particular, we discussed the method most of interest to her. She had been on hormones in the past and she feels she is doing very well with fertility awareness and she is keeping very close track of her signs and symptoms and even does basal body temperature tracking. ---I discussed with pt some of the optimal strategies for planning a , including achieving the best health she can before , including heathy balanced diet, exercise, wt loss to ideal BMI if appropriate, avoiding toxic substances and medications, not smoking, and taking a multivitamin w folic acid daily. Any specific health concerns should be managed before seeking/ putting oneself at risk of pregancy. In addition I reviewed normal cycles, fertility awareness and signs of ovulation, and timing to avoid, and achieve when she feel ready. I also discussed emotional and relationship and support readiness before embarking on . Discussed the current sites available for [facility]thing [facility] the [facility] Discussed her history of BV and how she is managing things currently currently she is taking a pineapple extract that she read a study about that helped to break-up the biofilm in the vagina and discussed also that many women have found treating with boric acid capsules after intercourse to be helpful. Orders: Orders Bacterial Vaginosis Panel Today Z12.4 - Encounter for screening for malignant neoplasm of cervix CT NG by PCR Vag/Cerv Today Z12.4 - Encounter for screening for malignant neoplasm of cervix Coding Level of Care Code New Pt Prev Care 18-39yr([id number] Diagnoses Cervical cancer screening Z12.4 Bacterial vaginosis N76.0; B96.89 Uses fertility awareness method as primary control method Z78.9
[2025-04-23 09:40] VITALS: BP 108/78; BMI 36.7
--- OUTSIDE RECORDS SUMMARY | 2025-04-23 10:27 | XMS_ITS | Patient Health Record ---
Author Organization [facility] Address [address] [place] [address] Support Name Relationship Address Phone Niraj Mariano Emergency Contact Unknown Unavailab lydia Carolann Rodriguez Guarantor Unknown Allergies Allergen (clinical drug ingredient) Drug/Non Drug Allergy documented on EMR Reaction Allergy Type Onset Date Status Cat dander Cat Dander Unknown Allergy Active Fish derivative (substance) Fish-derived Products Unknown Drug Allergy Active Pollen Pollen Unknown Allergy Active Reason For Referral No Information Medications Medication SIG (Take, Route, Frequency, Duration) Notes Start Date End Date Status metroNIDAZOLE 500 MG Tablet 1 tablet Ora lly every12 hrs (avoid alcohol); Duration: 7 days 10/03/2023 Active Antihistamine Active Social History Sex Assigned At : Social History Observation Description Sex Assigned At Female Social History HIV Risk Assessment Social Info Question Answer Notes Additional Questions Is an HIV Risk Assessment being c onducted? Yes Have you been tested for HIV before? Yes Reproductive Life Plan: Social Info Question Answer Notes Reproductive Life Plan: Do you want to h ave children? Yes, I want to have children Human Trafficking: Social Info Question Answer Notes Human Trafficking Experienced: No Sexual History: Social Info Question Answer Notes Sexual History: Sexual History Reviewed: Partner s, Practices, Protection/Past STIs, Prevention of Currently sexually active? Yes Sexually active with: Men Number of male partners 1 Your sexual activities include: anal intercourse, oral intercourse, vagi nal intercourse Date of last unprotected intercourse: 09/16/2023 Number of partners in past 3 months: 1 Number of partners in past year: 1 Counseling Provided: Social Info Question Answer Notes Counseling Provided Please indicate the length of time, in minutes, that counseling was provided. 7 Counseling Was Provided By: sisi Drugs/Alcohol: Social Info Question Answer Notes Drug/Alcohol Use Do you or have you used drugs? Yes, c urrently By what route are you taking drugs? Please check all that apply: Smoking Which drug(s) do you smoke? Marijuana Do you or have you used alcohol? Yes, currently socially Food Access: Social Info Question Answer Notes Food Access The Client's current access to food is Secure Food Access Relationships: Social Info Question Answer Notes Relationships Has the client exper ienced any of the following: Client has never experienced harmful relationships Housing Social Info Question Answer Notes Housing The client's current living situation is: stable housing Tobacco Use: Social Info Question Answer Notes Tobacco Use: Do you/have you used tobacco? Yes, in the past When did you quit? Tobacco Smoking Status Former smoker Plan Of Treatment No Information Insurance Providers Payer Name Payer Address Payer Phone Subscriber Number Group Number Insured Name Patient Relationship to Insured Coverage Start Date Coverage End Date [employer] [address] [address] [place] [address] [id number] Carolann Singh Self - patient is the insured Medical (General) History Medical History History ICD Code Weight concerns Anxiety
== END 2025-04-23 11:12 | disposition home or self-care (01) ==
LOC: HO.HWSM 09:13
PROVIDERS: PCP Nurse Practitioner Family; Visit Provider Advanced Practice Midwife
DX: Z01.419 Encounter for gynecological examination (general) (routine) without abnormal findings (principal); N76.0 Acute vaginitis; B96.89 Other specified bacterial agents as the cause of diseases classified elsewhere; Z78.9 Other specified health status
CPT/HCPCS: 99395; 99459

== ENCOUNTER 2025-04-23 09:13 | Outpatient (REF) | payer OTHER, SELFPAY ==
[2025-04-24 00:44] LABS: Bacterial Vaginosis PCR POSITIVE (Negative); Candida Group PCR NOT DETECTED (Not Detect); Candida glab krusei PCR NOT DETECTED (Not Detect); Trichomonas vaginalis PCR NOT DETECTED (Not Detect)
[2025-04-24 01:15] LABS: CT PCR NOT DETECTED (Not Detect.); NG PCR NOT DETECTED (Not Detect.)
== END 2025-04-23 09:14 | disposition home or self-care (01) ==
LOC: HO.LNP 09:13
PROVIDERS: PCP Nurse Practitioner Family; Visit Provider Advanced Practice Midwife
DX: Z12.4 Encounter for screening for malignant neoplasm of cervix (principal); N76.0 Acute vaginitis; B96.89 Other specified bacterial agents as the cause of diseases classified elsewhere; Z20.2 Contact with and (suspected) exposure to infections with a predominantly sexual mode of transmission; Z78.9 Other specified health status
CPT/HCPCS: 81515; 87491; 87591